=== PATIENT | male | born 1980 | race Caucasian/White ===

== ENCOUNTER → 2021-10-27 13:22 | Outpatient (CLI) | payer BC, SELFPAY ==
--- NOTE | ~2021-10-27 | MR_ITS ---
EXAMINATION: MR brain/brain stem wo con DATE: 10/27/2021 14:23 INDICATION: Tongue weakness or paralysis. Ocular migraine. TECHNIQUE: Magnetic resonance imaging (MRI) of the brain and brainstem was performed without intraven ous contrast. Sequences included sagittal and axial T1-weighted SE, axial diffusion-weighted FS SE, a xial T2*-weighted GRE, axial 3D SWAN, axial T2-weighted FLAIR, and axial T2-weighted FSE. Apparent di ffusion coefficient (ADC) maps were created. COMPARISON: None. FINDINGS: There are no areas of restricted diffusion to suggest acute infarction. There is approximately 1.3 cm long, 3 mm diameter linear T2 hyperintense lesion in the left posteromedial ramirez representing a cave rnoma with surrounding low signal intensity hemosiderin rim which blooms on the T2* weighted images. A couple small foci of nonspecific increased T2-weighted signal intensity in the anterior left fronta l lobe white matter and posterior right frontal periventricular white matter which is within normal l imits for age. There are no intraparenchymal signal abnormalities seen on the other pulse sequences. The ventricles are symmetric and normal in size. There are no abnormal extra-axial fluid collections. Flow voids are seen in the cerebral arteries on the T2-weighted sequences consistent with their expe cted patency. Mild mucosal thickening the bilateral ethmoid sinuses with small likely mucous retentio n cyst in a posterior right ethmoid air cell. Visualized orbits and soft tissues are unremarkable. IMPRESSION: 1. No acute intracranial process. 2. 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 Reviewed, dictated and finalized at location A.
== END ==
PROVIDERS: PCP Family Medicine; Visit Provider Family Medicine
DX: R44.8 Other symptoms and signs involving general sensations and perceptions (principal); G43.109 Migraine with aura, not intractable, without status migrainosus
CPT/HCPCS: 70551